=== PATIENT | female | born 1995 | race African-American/Black ===

== ENCOUNTER 2017-03-04 13:01 | Emergency (ER) | payer OTHER ==
[~2017-03-04] VITALS: Ht 180.3 cm; Wt 66.7 kg
[~2017-03-04 13:01] MED LIST: CIPR500T94 PO; PHEN-373 PO
[2017-03-04 13:09] VITALS: BP 139/63
[2017-03-04] MEDS ORDERED: NAPROXEN 500 MG TABLET PO STA (13:19)
[2017-03-04] MEDS ORDERED: HYDROcodone/APAP 5/325MG 1 TAB TABLET PO ONE (13:30)
[2017-03-04] MEDS ORDERED: ACET-704 PO (13:31)
[2017-03-04] MEDS ORDERED: TRAM-29 PO (13:31)
--- NOTE | 2017-03-04 13:31 | PHYS DOC ---
Past Medical History Past Medical History: CVA, Other Additional Past Medical Histor: patient had a stroke in 2006; left side partial weakness,FLUID ON SPINE Past Surgical History: No Surgical History Alcohol Use: None Drug Use: None Adult General Chief Complaint Chief Complaint: VAGINAL BLEEDING [facility] HPI Patient is a 21 year old female who presents with vaginal bleeding that began at the end of November 2016. Patient states she's been using 6 feminine pads per day. Patient denies any chance she is . She states she followed up with [facility] they did testing gave her some medicine which stopped the bleeding for 2 weeks then the bleeding resumed in December. Patient states she's been bleeding since then Patient's also complaining of lower abdominal cramping mild in nature. Patient states all she wants today is pain medicine for cramping OTC pain medicines are not helping. She states she will follow-up with her own PERSONAL COUNSELOR in 2 weeks as scheduled. Patient states she does not want any more workups because they could not find anything wrong in the previous work ups , so she does not want to go through the testing again. Patient denies any urgency frequency or dysuria. Review of Systems Review of Systems Constitutional: Denies fever or chills [] Eyes: Denies change in visual acuity, redness, or eye pain [] HENT: Denies nasal congestion or sore throat [] Respiratory: Denies cough or shortness of breath [] Cardiovascular: No additional information not addressed in HPI [] GI: Vaginal bleeding : See history of present illness Musculoskeletal: Denies back pain or joint pain [] Integument: Denies rash or skin lesions [] Neurologic: Denies headache, focal weakness or sensory changes [] Endocrine: Denies polyuria or polydipsia [] Current Medications Current Medications Current Medications Medications (Trade) Dose Ordered Sig/Rodo Start Time Stop Time Status Last Admin Dose Admin Acetaminophen/ Hydrocodone Bitart (Lortab 5/325) 1 tab 1X ONCE 03/04/17 13:30 03/04/17 13:31 DC Naproxen (Naprosyn) 500 mg 1X STAT 03/04/17 13:19 03/04/17 13:22 DC Allergies Allergies Allergies Coded Allergies Type Severity Reaction Last Updated Verified No Known Drug Allergies 10/03/13 No Physical Exam Physical Exam Constitutional: Well developed, well nourished, no acute distress, non-toxic appearance. [] HENT: Normocephalic, atraumatic, bilateral external ears normal, oropharynx moist, no oral exudates, nose normal. [] Eyes: PERRLA, EOMI, conjunctiva normal, no discharge. [] Neck: Normal range of motion, no tenderness, supple, no stridor. [] Cardiovascular:Heart rate regular rhythm, no murmur [] Lungs & Thorax: Bilateral breath sounds clear to auscultation [] Abdomen: Bowel sounds normal, soft, no tenderness, no masses, no pulsatile masses. [] Skin: Warm, dry, no erythema, no rash. [] Back: No tenderness, no CVA tenderness. [] Extremities: No tenderness, no cyanosis, no clubbing, ROM intact, no edema. [] Neurologic: Alert and oriented X 3, normal motor function, normal sensory function, no focal deficits noted. [] Psychologic: Affect normal, judgement normal, mood normal. [] Current Patient Data Vital Signs Vital Signs Date Time Temp Pulse Resp B/P (MAP) Pulse Ox O2 Delivery O2 Flow Rate FiO2 03/04/17 13:09 98.4 96 16 139/63 (88) 99 Room Air 98.4 EKG EKG [] Radiology/Procedures Radiology/Procedures [] Course & Med Decision Making Course & Med Decision Making Pertinent Labs and Imaging studies reviewed. (See chart for details) Patient is in the ED with dysfunctional uterine bleeding that has been going on since November 2016. She states she's been seen at [facility] on the on the workup which was negative. She states she has an appointment with her own OB/ TECHNICAL ASSOCIATE in 2 weeks. She is requesting pain relief in the ED today. She is very tearful. She has refused any workup. I offered her Ultram and Tylenol No. 3. Recommended she follows up with an PERSONAL COUNSELOR as soon as possible. Provided return precautions and discharged in stable condition. Dragon Disclaimer Dragon Disclaimer This electronic medical record was generated, in whole or in part, using a voice recognition dictation system. Departure Departure Impression: Primary Impression: Dysfunctional uterine bleeding Additional Impression: Dysmenorrhea Disposition: HOME, SELF-CARE Condition: STABLE Referrals: UNKNOWN PCP NAME (PCP) EVERTON PRUITT MD Follow-up with your own PERSONAL COUNSELOR or the provided PERSONAL COUNSELOR as soon as possible Patient Instructions: Dysmenorrhea, Uterine Bleeding, Dysfunctional, Easy-to- Read Additional Instructions: You were seen for dysfunctional uterine bleeding. We highly recommend you follow -up with an PERSONAL COUNSELOR as soon as you can. If you start soaking more than 1 feminine pad an hour you need to return to the emergency room. Scripts Acetaminophen With Codeine (TYLENOL WITH CODEINE #3 TABLET) 1 Each Tablet 1 TAB PO PRN Q6HRS Y for PAIN, #30 TAB Prov: MOOSE MATTSON APRN 03/04/17 Tramadol Hcl (ULTRAM) 50 Mg Tablet 1 TAB PO Q6HRS, #30 TAB Prov: MOOSE MATTSON APRN 03/04/17 Problem Qualifiers MOOSE MATTSON APRN March 04, 2017 13:31
== END 2017-03-04 13:44 | disposition home or self-care (01) ==
LOC: ER 13:39
DX: N94.6 Dysmenorrhea, unspecified (principal); N93.8 Other specified abnormal uterine and vaginal bleeding; Z86.73 Personal history of transient ischemic attack (TIA), and cerebral infarction without residual deficits
CPT/HCPCS: 99283

== ENCOUNTER 2017-11-07 10:43 | Emergency (ER) | payer SELFPAY, OTHER ==
[2017-11-07] MEDS: DEXAMETHASONE SOD PHOS 4 MG/ML VIAL PO (11:46)
[2017-11-07] MEDS: cefTRIAXone IM 1 GM VIAL IM (11:47)
[2017-11-07 14:45] LABS: NEGATIVE OBC STREP NEG; POSITIVE OBC STREP POS
== END 2017-11-07 12:32 | disposition home or self-care (01) ==
LOC: ER 10:43
DX: J03.90 Acute tonsillitis, unspecified (principal); Z86.73 Personal history of transient ischemic attack (TIA), and cerebral infarction without residual deficits
CPT/HCPCS: 87070; 87880; 96372; 99284-25; J0696; J1100

== ENCOUNTER 2018-07-12 22:25 | Emergency (ER) | payer SELFPAY ==
[~2018-07-12] VITALS: Ht 167.6 cm; Wt 81.6 kg
[~2018-07-12 22:25] MED LIST changes: +ACET-704 PO; +AMOX875T PO; -PHEN-373 PO; +PHEN-444 PO; +TRAM-48 PO
[2018-07-13 00:32] VITALS: BP 127/78
[2018-07-13 01:05] LABS: BILIRUBIN,URINE NEGATIVE (NEG); CLARITY,URINE CLEAR; COLOR,URINE YELLOW; NITRITE,URINE NEGATIVE (NEG); PROTEIN,URINE NEGATIVE (NEG-TRACE)
[2018-07-13 01:11] LABS: AMORPHOUS SEDIMENT,UR PRESENT /HPF; BACTERIA,URINE FEW /HPF (0-FEW); SQUAMOUS EPITHELIAL CELL,UR MANY /LPF
--- NOTE | 2018-07-13 01:29 | PHYS DOC ---
Past Medical History Past Medical History: No Pertinent History, CVA, Other Additional Past Medical Histor: patient had a stroke in 2006; left side partial weakness,FLUID ON SPINE Past Surgical History: No Surgical History Alcohol Use: None Drug Use: None Adult General Chief Complaint Chief Complaint: VAGINAL BLEEDING [facility] HPI Patient is a 22 year old female who presents with vaginal spotting for the past week. She states she is 13 weeks . She states it has been getting progressively worse. She notes the spotting is worse with urination. She also endorses slight abdominal cramps that are intermittent. She rates this pain as a 4/10 and describes it as a crampy pain. The pain does not radiate anywhere. She has not tried anything to make her symptoms better. She has not seen an OBGYN for this . She has been once before and had a full-term with no complications. This is her second . She denies any headaches, dizziness, diarrhea, constipation, or urinary changes. States she did have some nausea and vomiting last week. Review of Systems Review of Systems Constitutional: Denies fever or chills Eyes: Denies change in visual acuity, redness, or eye pain HENT: Denies nasal congestion or sore throat Respiratory: Denies cough or shortness of breath Cardiovascular: No additional information not addressed in HPI GI: Notes abdominal cramps, nausea, vomiting, Denies diarrhea or constipation : Notes vaginal spotting; Denies dysuria Musculoskeletal: Denies back pain or joint pain Integument: Denies rash or skin lesions Neurologic: Denies headache, focal weakness or sensory changes Complete systems were reviewed and found to be within normal limits, except as documented in this note. Family History Family History Denies Current Medications Current Medications Current Medications Medications (Trade) Dose Ordered Sig/Rodo Start Time Stop Time Status Last Admin Dose Admin Azithromycin (Zithromax) 1,000 mg 1X ONCE 07/13/18 03:45 07/13/18 03:46 DC 07/13/18 03:58 1,000 MG Ceftriaxone Sodium (Rocephin Im) 250 mg 1X ONCE 07/13/18 03:45 07/13/18 03:46 DC 07/13/18 03:59 250 MG Metronidazole (Flagyl) 500 mg 1X ONCE 07/13/18 04:45 07/13/18 04:46 None Allergies Allergies Allergies Coded Allergies Type Severity Reaction Last Updated Verified No Known Drug Allergies 10/03/13 No NKDA Physical Exam Physical Exam Constitutional: Well developed, well nourished, no acute distress, non-toxic appearance HENT: Normocephalic, atraumatic, oropharynx moist, no oral exudates, nose normal Eyes: Conjunctiva normal, no discharge Neck: Normal range of motion, no tenderness, supple, no meningismus Cardiovascular: Heart rate regular rhythm, no murmur Lungs & Thorax: Bilateral breath sounds clear to auscultation Abdomen: Soft, no tenderness Skin: Warm, dry, no erythema, no rash Back: No tenderness, no CVA tenderness Extremities: No tenderness, ROM intact, no edema Neurologic: Alert and oriented X 3, normal motor function, normal sensory function, no focal deficits noted Psychologic: Affect normal, judgement normal, mood normal Current Patient Data Vital Signs Vital Signs Date Time Temp Pulse Resp B/P (MAP) Pulse Ox O2 Delivery O2 Flow Rate FiO2 07/13/18 00:32 98.7 87 18 127/78 (94) 100 Room Air 98.7 Lab Values Laboratory Tests Test 07/13/18 00:32 07/13/18 00:55 07/13/18 01:25 Urine Collection Type Unknown Urine Color Yellow Urine Clarity Clear Urine pH 6.0 Urine Specific [place] >=1.030 Urine Protein Negative mg/dL (NEG-TRACE) Urine Glucose (UA) Negative mg/dL (NEG) Urine Ketones (Stick) Trace mg/dL (NEG) Urine Blood Large (NEG) Urine Nitrite Negative (NEG) Urine Bilirubin Negative (NEG) Urine Urobilinogen Dipstick 1.0 mg/dL (0.2 mg/dL) Urine Leukocyte Esterase Moderate (NEG) Urine RBC 1-2 /HPF (0-2) Urine WBC 11-20 /HPF (0-4) Urine Squamous Epithelial Cells Many /LPF Urine Amorphous Sediment Present /HPF Urine Bacteria Few /HPF (0-FEW) Urine Mucus Marked /LPF POC Urine HCG, Qualitative Hcg positive (Negative) White Blood Count 7.6 x10^3/uL (4.0-11.0) Red Blood Count 3.80 x10^6/uL (3.50-5.40) Hemoglobin 9.7 g/dL (12.0-15.5) L Hematocrit 29.0 % (36.0-47.0) L Mean Corpuscular Volume 76 fL (79-100) L Mean Corpuscular Hemoglobin 26 pg (25-35) Mean Corpuscular Hemoglobin Concent 34 g/dL (31-37) Red Cell Distribution Width 17.9 % (11.5-14.5) H Platelet Count 245 x10^3/uL (140-400) Neutrophils (%) (Auto) 78 % (31-73) H Lymphocytes (%) (Auto) 13 % (24-48) L Monocytes (%) (Auto) 7 % (0-9) Eosinophils (%) (Auto) 2 % (0-3) Basophils (%) (Auto) 0 % (0-3) Neutrophils # (Auto) 5.9 x10^3uL (1.8-7.7) Lymphocytes # (Auto) 1.0 x10^3/uL (1.0-4.8) Monocytes # (Auto) 0.5 x10^3/uL (0.0-1.1) Eosinophils # (Auto) 0.1 x10^3/uL (0.0-0.7) Basophils # (Auto) 0.0 x10^3/uL (0.0-0.2) Maternal Serum HCG Beta Subunit 93462 mIU/mL (0-5) H Sodium Level 138 mmol/L (136-145) Potassium Level 3.6 mmol/L (3.5-5.1) Chloride Level 102 mmol/L (98-107) Carbon Dioxide Level 27 mmol/L (21-32) Anion Gap 9 (6-14) Blood Urea Nitrogen 12 mg/dL (7-20) Creatinine 0.6 mg/dL (0.6-1.0) Estimated GFR (Cockcroft-Gault) 152.7 BUN/Creatinine Ratio 20 (6-20) Glucose Level 98 mg/dL (70-99) Calcium Level 8.7 mg/dL (8.5-10.1) Magnesium Level 1.9 mg/dL (1.8-2.4) Total Bilirubin 0.2 mg/dL (0.2-1.0) Aspartate Amino Transferase (AST) 11 U/L (15-37) L Alanine Aminotransferase (ALT) 12 U/L (14-59) L Alkaline Phosphatase 55 U/L (46-116) Total Protein 7.0 g/dL (6.4-8.2) Albumin 3.1 g/dL (3.4-5.0) L Albumin/Globulin Ratio 0.8 (1.0-1.7) L Laboratory Tests 07/13/18 01:25 Laboratory Tests 07/13/18 01:25 Microbiology 07/13/18 Wet Prep - Final, Complete EKG EKG [] Radiology/Procedures Radiology/Procedures Pelvic US: Single living intrauterine with heart rate of 158 bpm. Gestational age is 14 weeks and 5 days. Course & Med Decision Making Course & Med Decision Making Patient is a 22 year old female who presents with vaginal spotting for the past week. Pertinent labs and imaging studies were obtained and reviewed ( see chart for details). Pelvic ultrasound showed presence of heart tones and measurements were obtained. A single living intrauterine with heart rate of 158 bpm was noted. Gestational age is 14 weeks and 5 days. Patient underwent pelvic exam. Pelvic exam showed some blood and some thick white discharge. Wet mount prep was obtained and showed the presence of clue cells. High suspicion for bacterial vaginosis. Prescription for metronidazole 500mg bid for 7 days is provided. Prior to this, she was also given a one-time dose of Rocephin and azithromycin to cover potential gonorrhea and chlamydia infections. Patient was informed about possibility of future threatened miscarriage vs. normal . Patient acknowledged understanding. Patient stable for discharge with outpatient follow-up with OBGYN. Discussed findings and plan with patient, who acknowledge understanding and agreement. Dragon Disclaimer Dragon Disclaimer This electronic medical record was generated, in whole or in part, using a voice recognition dictation system. Departure Departure Impression: Primary Impression: Threatened miscarriage Additional Impression: Bacterial vaginosis Disposition: HOME, SELF-CARE Condition: STABLE Referrals: NO PCP (PCP) Patient Instructions: Bacterial Vaginosis, [id number], Threatened Miscarriage , [id number] Scripts Metronidazole (FLAGYL) 500 Mg Tablet 500 MG PO BID for 7 Days, #14 TAB Prov: MIGEL FIGUEROA DO 07/13/18 Problem Qualifiers MIGEL FIGUEROA DO Jul 13, 2018 01:29
[2018-07-13 01:35] LABS: BASO % 0 % (0-3); EOS # 0.1 x10^3/uL (0.0-0.7); EOS % 2 % (0-3); HEMOGLOBIN 9.7 g/dL (12.0-15.5); LYMPH % 13 % (24-48); MEAN CORPUSCULAR HEMOGLOBIN 26 pg (25-35); MEAN CORPUSCULAR HGB CONC 34 g/dL (31-37); MEAN CORPUSCULAR VOLUME 76 fL (79-100); MONO # 0.5 x10^3/uL (0.0-1.1); MONO % 7 % (0-9); NEUT # 5.9 x10^3uL (1.8-7.7); NEUT % 78 % (31-73); PLATELET COUNT 245 x10^3/uL (140-400); RED CELL DISTRIBUTION WIDTH 17.9 % (11.5-14.5); WHITE BLOOD COUNT 7.6 x10^3/uL (4.0-11.0)
[2018-07-13 02:08] LABS: ALBUMIN 3.1 g/dL (3.4-5.0); ALBUMIN/GLOBULIN RATIO 0.8 (1.0-1.7); CALCIUM 8.7 mg/dL (8.5-10.1); CREATININE 0.6 mg/dL (0.6-1.0); GFR 152.7; MAGNESIUM 1.9 mg/dL (1.8-2.4); POTASSIUM 3.6 mmol/L (3.5-5.1); TOTAL BILIRUBIN 0.2 mg/dL (0.2-1.0)
--- NOTE | 2018-07-13 03:07 | RAD ---
Examination: Obstetric ultrasound less than 14 weeks HISTORY: History of spotting for one week COMPARISON: None available FINDINGS: Single living intrauterine identified with heart rate of 158 bpm movement, cardiac activity seen 3 vessel cord is seen Fluid in the bladder, stomach, kidneys, spine, brain are visualized. Probable fluid identified in the third and fourth ventricles. Questionable mild echogenic appearing bowel. position is variable Cervical length is 3.6 cm Base of the localization is posterior wall Placental grade is grade 1 Amniotic fluid is normal [place]-rump length measures 8.3 cm corresponding to 14 weeks and 2 days Biparietal diameter measures 2.7 cm corresponding to 15 weeks and 0 days Head circumference measures 10.6 cm corresponding to 15 weeks and 0 days Abdominal circumference measures 8.5 cm corresponding to 14 weeks and 6 days Femur length measures 1.5 cm corresponding to 14 weeks and 3 days Gestational age corresponds to 14 weeks and 5 days with estimated date of delivery by this ultrasound 01/06/2019. There is a 4.8 cm fibroid identified in the anterior aspect of the uterus. Cephalic index is 82.9 Head circumference to abdominal circumference ratio 1.2 Femur length to biparietal diameter ratio 54.5 Femur length to head circumference 14.3 Femur length to abdominal circumference 17.7. IMPRESSION: 1. Single living intrauterine with heart rate of 158 bpm. Gestational age is 14 weeks and 5 days. 2. Questionable echogenic appearing bowel. Close interval follow-up examination is recommended. 3. Fluid is identified in the third and fourth ventricles. Electronically signed by: Cory Bosch MD (07/13/2018 3:03 AM) [id number]
[2018-07-13] MEDS ORDERED: cefTRIAXone IM 250 MG VIAL IM ONE (03:45)
[2018-07-13] MEDS ORDERED: AZITHROMYCIN 250 MG TABLET. PO ONE (03:45)
[2018-07-13] MEDS ORDERED: METR500T PO (04:09)
[2018-07-13] MEDS ORDERED: metroNIDAZOLE 500 MG TABLET PO ONE (04:45)
== END 2018-07-13 04:30 | disposition home or self-care (01) ==
LOC: ER 22:25
DX: O20.0 Threatened abortion (principal); O21.9 Vomiting of pregnancy, unspecified; O23.591 Infection of other part of genital tract in pregnancy, first trimester; B96.89 Other specified bacterial agents as the cause of diseases classified elsewhere; Z3A.13 13 weeks gestation of pregnancy
CPT/HCPCS: 36415; 76805; 76817; 80053; 81001; 81025; 83735; 84702; 85025; 86900; 86901; 87086; 96372; 99285; J0696; Q0111; Q0144

== ENCOUNTER → 2018-08-22 | Outpatient (CLI) | payer MEDICAID, OTHER ==
[~2018-08-22] MED LIST changes: +METR500T PO
--- NOTE | 2018-08-22 16:59 | KCIC ---
Indication: Evaluate for size and dates TECHNIQUE: Ultrasound OB limited COMPARISON: Previous exam from 07/13/2018 FINDINGS: The biparietal diameter measures 4.74 cm corresponding to gestation age of 20 weeks 2 days. The head circumference measures 17.22 cm corresponding to gestation age of 19 weeks 6 days. Abdominal circumference measures 15.53 cm corresponding to gestation age of 20 weeks 5 days. Cord insertion is visualized. The femoral length measures 3.42 cm corresponding to gestation age of 20 weeks 5 days. Female sex demonstrated. Cervix is closed and measures 4 cm in length. Placenta is posterior in positioning. Heart rate of 152 bpm. Amniotic fluid index measures 11 cm and is within normal limits. Presentation is vertex of the time of scanning. Four-chamber heart is not visualized. Estimated weight of 366 g plus or minus 54 g. movement was observed. IMPRESSION: 1. Single viable intrauterine with estimated gestation age of 20 weeks 3 days with due date of 01/06/2019. 2. Four-chamber heart was not visualized likely due to positioning. Attention on follow-up. Electronically signed by: Sarbjit Palacios DO (08/22/2018 4:56 PM) [facility]
== END | disposition home or self-care (01) ==
LOC: KCIC US 14:43
PROVIDERS: ATTEND Obstetrics & Gynecology
DX: O26.842 Uterine size-date discrepancy, second trimester (principal); Z3A.20 20 weeks gestation of pregnancy
CPT/HCPCS: 76815

== ENCOUNTER 2019-01-03 07:54 | Inpatient (IN) | payer OTHER ==
[~2019-01-03] VITALS: Ht 180.3 cm; Wt 81.6 kg
[2019-01-03] MEDS ORDERED: BUTORPHANOL 2 MG/ML VIAL. IV PRN ×2 (08:30)
[2019-01-03] MEDS ORDERED: LIDOCAINE 1% PF 30 ML VIAL. INJ PRN (08:30)
[2019-01-03] MEDS ORDERED: 0.9 % SODIUM CHLORIDE 10 ML DISP.SYRIN. IV PRN ×2 (08:30→19:00)
[2019-01-03] MEDS ORDERED: fentaNYL PF VIAL 100 MCG/2 ML VIAL IV PRN (08:30)
[2019-01-03] MEDS ORDERED: OXYTOCIN 30 UNIT/500 ML PREMIX 500 ML IV PRN ×3 (08:30→19:00)
[2019-01-03] MEDS ORDERED: TERBUTALINE 1 MG/ML VIAL. SQ PRN (08:30)
[2019-01-03 08:35] VITALS: BP 120/80
[2019-01-03 09:40] LABS: BASO % 1 % (0-3); EOS # 0.1 x10^3/uL (0.0-0.7); EOS % 1 % (0-3); HEMATOCRIT 26.7 % (36.0-47.0); HEMOGLOBIN 8.2 g/dL (12.0-15.5); LYMPH % 15 % (24-48); MEAN CORPUSCULAR HEMOGLOBIN 21 pg (25-35); MEAN CORPUSCULAR HGB CONC 31 g/dL (31-37); MEAN CORPUSCULAR VOLUME 67 fL (79-100); MONO # 0.4 x10^3/uL (0.0-1.1); MONO % 6 % (0-9); NEUT # 5.3 x10^3uL (1.8-7.7); NEUT % 78 % (31-73); PLATELET COUNT 222 x10^3/uL (140-400); RED BLOOD COUNT 3.97 x10^6/uL (3.50-5.40); RED CELL DISTRIBUTION WIDTH 18.6 % (11.5-14.5); WHITE BLOOD COUNT 6.8 x10^3/uL (4.0-11.0)
[2019-01-03 10:03] LABS: BILIRUBIN,URINE NEGATIVE (NEG); CLARITY,URINE CLEAR; COLOR,URINE YELLOW; NITRITE,URINE NEGATIVE (NEG); PROTEIN,URINE NEGATIVE (NEG-TRACE); UROBILINOGEN,URINE 0.2 mg/dL (0.2 mg/dL)
[2019-01-03 10:12] LABS: SQUAMOUS EPITHELIAL CELL,UR MOD /LPF
[2019-01-03 10:13] LABS: BACTERIA,URINE MODERATE /HPF (0-FEW); RBC,URINE OCC /HPF (0-2)
[2019-01-03] MEDS ORDERED: ROPIVacaine 0.2% PF 10 ML VIAL. ONE ×2 (10:54→11:00)
[2019-01-03] MEDS ORDERED: L&D EPIDURAL SYRINGE 50 ML ONE (10:55)
[2019-01-03] MEDS ORDERED: L&D EPIDURAL 50 ML SYRINGE. ONE (11:00)
[2019-01-03 11:09] LABS: PLT ESTIMATE ADEQUATE (ADEQUATE)
[2019-01-03 11:10] LABS: ANISOCYTOSIS SLIGHT; MICROCYTOSIS MOD; OVALOCYTES FEW; POLYCHROMASIA SLIGHT
[2019-01-03 11:11] LABS: HYPOCHROMIA PRESENT
[2019-01-03] MEDS ORDERED: IV RINGERS,LACTATED 1000ML 1,000 ML IV SCH (13:04)
[2019-01-03] MEDS ORDERED: fentaNYL PF VIAL 100 MCG/2 ML VIAL EPI PRN (13:15)
[2019-01-03] MEDS ORDERED: NALOXONE 0.4 MG/ML VIAL. IV PRN (13:15)
[2019-01-03] MEDS ORDERED: ROPIVacaine 0.2% IN 0.9%NACL PF 40 MG/20 ML DISP.SYRIN. EPID PRN (13:15)
[2019-01-03] MEDS ORDERED: BUPIVACAINE MPF 0.25% 30 ML VIAL. EPID PRN (13:15)
[2019-01-03] MEDS: IV RINGERS,LACTATED 1000ML 1,000 ML IV SCH ×2 (13:51→16:28)
[2019-01-03] MEDS: L&D EPIDURAL SYRINGE 50 ML EPID PRN ×2 (14:43→17:39)
--- NOTE | 2019-01-03 17:00 | PDOC1 ---
OB - History Hx of Present Care: Good Care Ultrasounds: Normal mid trimester US Obstetrical Complications: None Medical Complications: None Past Family/Social History * Past Medical, Surgical, Family and Obstetric Histories reviewed from chart. Rubella: Immune RPR/VDRL: Negative GBS Status: Negative HBsAG: Negative OB - Chief Complaint & HPI Date of Admission: Date of Admission: Jan 03, 2019 at 07:54 Chief Complaint/History : 2 Para: 1 EGA: 39 Reason for admission: active labor Admission Nurse Assessment Rev: Yes OB - Admission Exam Physical Exam Vitals: VS - Last 72 Hours, by Label Date Time Temp Pulse Resp B/P (MAP) Pulse Ox O2 Delivery O2 Flow Rate FiO2 01/03/19 14:43 18 01/03/19 08:35 99.1 73 18 120/80 (93) Room Air 99.1 HEENT: Normal Heart: Regular Rate Lungs: Clear Abdomen: Gravid, Non tender, Soft Extremities: Edema Reflexes: Normal Cervical Dilatation: 3cm Effacement: 100% Station: -3 Membranes: Intact Heart Rate: Normal Accelerations: Accelerations Present Decelerations: No decelerations Intensity: Firm Text A: 39 wks IUP Active labor P: Admit for labor management. LETICIA ARTIS Jr, MD Jan 03, 2019 17:00
--- NOTE | 2019-01-03 18:47 | PDOC ---
VAGINAL DELIVERY DATE DATE: 01/03/19 TIME: 18:46 : 2 Para: 2 EGA: 39 VAGINAL DELIVERY: VTX VACCUM ASSISTED: No PLACENTA: Spontaneous 8/9 SEX: Female WEIGHT Weight [ 7 lbs. 7 oz] Nuchal Cord: No Amniotic Fluid: Clear PAIN: Epidural EPISIOTOMY: No EXTENSION: No EBL 300 ml COMPLICATIONS none CONDITION pt. stable Signs of Intrauterine Infectio: None Shoulder Dystocia: No LETICIA ARTIS Jr, MD Jan 03, 2019 18:47
[2019-01-03] MEDS ORDERED: ZOLPIDEM 5 MG TABLET. PO PRN (19:00)
[2019-01-03] MEDS ORDERED: BENZOCAINE 20% TOPICAL AEROSOL SPRAY 57GM CAN. TP PRN (19:00)
[2019-01-03] MEDS ORDERED: diphenhydrAMINE HCL 25 MG CAPSULE PO PRN (19:00)
[2019-01-03] MEDS ORDERED: MMR per PROTOCOL. MC PRN (19:00)
[2019-01-03] MEDS ORDERED: IBUPROFEN 400 MG TABLET. PO PRN (19:00)
[2019-01-03] MEDS ORDERED: MAG HYDROX/ALUMINUM HYD/SIMETH 30 ML ORAL.SUSP PO PRN (19:00)
[2019-01-03] MEDS ORDERED: SIMETHICONE 80 MG TAB.CHEW PO PRN (19:00)
[2019-01-03] MEDS ORDERED: MAGNESIUM HYDROXIDE 2,400 MG/30 ML ORAL.SUSP. PO PRN (19:00)
[2019-01-03] MEDS ORDERED: ACETAMINOPHEN 325 MG TABLET. PO PRN (19:00)
[2019-01-03] MEDS ORDERED: PHENYLEPH/MINERAL OIL/PETROLAT RECTAL OINTMENT 28GM TUBE. RC PRN (19:00)
[2019-01-03] MEDS ORDERED: HYDROCORTISONE 1% TOPICAL OINTMENT 30GM TUBE. TP PRN (19:00)
[2019-01-03 21:15] VITALS: BP 119/66
[2019-01-03] MEDS: IBUPROFEN 400 MG TABLET. PO PRN (21:31)
[2019-01-03] MEDS: oxyCODONE/APAP 5/325 1 TAB TABLET PO PRN (21:32)
[2019-01-04] MEDS: IV RINGERS,LACTATED 1000ML 1,000 ML IV SCH (00:28)
[2019-01-04 01:20] VITALS: BP 95/39
[2019-01-04] MEDS: IBUPROFEN 400 MG TABLET. PO PRN ×3 (03:46→20:14)
[2019-01-04] MEDS: oxyCODONE/APAP 5/325 1 TAB TABLET PO PRN (03:46)
[2019-01-04 03:51] VITALS: BP 94/50
[2019-01-04] MEDS ORDERED: FERROUS SULFATE 325 MG TABLET. PO SCH (08:00)
[2019-01-04] MEDS: DOCUSATE SODIUM 100 MG CAPSULE. PO PRN (08:01)
[2019-01-04 08:07] LABS: BASO % 1 % (0-3); EOS # 0.1 x10^3/uL (0.0-0.7); EOS % 1 % (0-3); HEMATOCRIT 24.8 % (36.0-47.0); HEMOGLOBIN 7.7 g/dL (12.0-15.5); LYMPH # 1.2 x10^3/uL (1.0-4.8); LYMPH % 13 % (24-48); MEAN CORPUSCULAR HEMOGLOBIN 21 pg (25-35); MEAN CORPUSCULAR HGB CONC 31 g/dL (31-37); MEAN CORPUSCULAR VOLUME 67 fL (79-100); MONO # 0.6 x10^3/uL (0.0-1.1); MONO % 6 % (0-9); NEUT # 7.8 x10^3uL (1.8-7.7); NEUT % 80 % (31-73); PLATELET COUNT 200 x10^3/uL (140-400); RED CELL DISTRIBUTION WIDTH 18.4 % (11.5-14.5); WHITE BLOOD COUNT 9.7 x10^3/uL (4.0-11.0)
[2019-01-04 10:30] VITALS: BP 101/62
--- NOTE | 2019-01-04 11:05 | PDOC ---
OB Progress Note Date of Service 01/04/19 Time of Evaluation 1100 Notes Pt. feeling well. No complaints. Lab Laboratory Tests Test 01/03/19 09:20 01/03/19 09:50 01/04/19 07:50 White Blood Count 6.8 x10^3/uL (4.0-11.0) 9.7 x10^3/uL (4.0-11.0) Red Blood Count 3.97 x10^6/uL (3.50-5.40) 3.70 x10^6/uL (3.50-5.40) Hemoglobin 8.2 g/dL (12.0-15.5) 7.7 g/dL (12.0-15.5) Hematocrit 26.7 % (36.0-47.0) 24.8 % (36.0-47.0) Mean Corpuscular Volume 67 fL (79-100) 67 fL (79-100) Mean Corpuscular Hemoglobin 21 pg (25-35) 21 pg (25-35) Mean Corpuscular Hemoglobin Concent 31 g/dL (31-37) 31 g/dL (31-37) Red Cell Distribution Width 18.6 % (11.5-14.5) 18.4 % (11.5-14.5) Platelet Count 222 x10^3/uL (140-400) 200 x10^3/uL (140-400) Neutrophils (%) (Auto) 78 % (31-73) 80 % (31-73) Lymphocytes (%) (Auto) 15 % (24-48) 13 % (24-48) Monocytes (%) (Auto) 6 % (0-9) 6 % (0-9) Eosinophils (%) (Auto) 1 % (0-3) 1 % (0-3) Basophils (%) (Auto) 1 % (0-3) 1 % (0-3) Neutrophils # (Auto) 5.3 x10^3uL (1.8-7.7) 7.8 x10^3uL (1.8-7.7) Lymphocytes # (Auto) 1.0 x10^3/uL (1.0-4.8) 1.2 x10^3/uL (1.0-4.8) Monocytes # (Auto) 0.4 x10^3/uL (0.0-1.1) 0.6 x10^3/uL (0.0-1.1) Eosinophils # (Auto) 0.1 x10^3/uL (0.0-0.7) 0.1 x10^3/uL (0.0-0.7) Basophils # (Auto) 0.0 x10^3/uL (0.0-0.2) 0.0 x10^3/uL (0.0-0.2) Platelet Estimate Adequate (ADEQUATE) Large Platelets Few Polychromasia Slight Hypochromasia Present Anisocytosis Slight Microcytosis Mod Ovalocytes Few Treponema pallidum Antibody Nonreactive (Nonreactive) Urine Collection Type Unknown Urine Color Yellow Urine Clarity Clear Urine pH 7.0 Urine Specific [place] <=1.005 Urine Protein Negative mg/dL (NEG-TRACE) Urine Glucose (UA) Negative mg/dL (NEG) Urine Ketones (Stick) Negative mg/dL (NEG) Urine Blood Negative (NEG) Urine Nitrite Negative (NEG) Urine Bilirubin Negative (NEG) Urine Urobilinogen Dipstick 0.2 mg/dL (0.2 mg/dL) Urine Leukocyte Esterase Moderate (NEG) Urine RBC Occ /HPF (0-2) Urine WBC 5-10 /HPF (0-4) Urine Squamous Epithelial Cells Mod /LPF Urine Bacteria Moderate /HPF (0-FEW) Laboratory Tests Test 01/04/19 07:50 White Blood Count 9.7 x10^3/uL (4.0-11.0) Red Blood Count 3.70 x10^6/uL (3.50-5.40) Hemoglobin 7.7 g/dL (12.0-15.5) Hematocrit 24.8 % (36.0-47.0) Mean Corpuscular Volume 67 fL (79-100) Mean Corpuscular Hemoglobin 21 pg (25-35) Mean Corpuscular Hemoglobin Concent 31 g/dL (31-37) Red Cell Distribution Width 18.4 % (11.5-14.5) Platelet Count 200 x10^3/uL (140-400) Neutrophils (%) (Auto) 80 % (31-73) Lymphocytes (%) (Auto) 13 % (24-48) Monocytes (%) (Auto) 6 % (0-9) Eosinophils (%) (Auto) 1 % (0-3) Basophils (%) (Auto) 1 % (0-3) Neutrophils # (Auto) 7.8 x10^3uL (1.8-7.7) Lymphocytes # (Auto) 1.2 x10^3/uL (1.0-4.8) Monocytes # (Auto) 0.6 x10^3/uL (0.0-1.1) Eosinophils # (Auto) 0.1 x10^3/uL (0.0-0.7) Basophils # (Auto) 0.0 x10^3/uL (0.0-0.2) Medications Current Medications Sodium Chloride (Normal Saline Flush) 3 ml QSHIFT PRN IV AFTER MEDS AND BLOOD DRAWS; Start 01/03/19 at 08:30 Ringer's Solution 1,000 ml @ 125 mls/hr Q8H IV Last administered on 01/03/19at 13:51; Start 01/03/19 at 08:28 Butorphanol Tartrate (Stadol) 1 mg PRN Q1HR PRN IV mild to moderate labor pain ; Start 01/03/19 at 08:30 Butorphanol Tartrate (Stadol) 2 mg PRN Q1HR PRN IV Severe labor pain; Start at 08:30 Fentanyl Citrate (Fentanyl 2ml Vial) 100 mcg PRN Q30MIN PRN IV Severe pain; Start 01/03/19 at 08:30 Terbutaline Sulfate (Brethine) 0.25 mg 1X PRN PRN SQ SEE COMMENTS; Start at 08:30; Stop 01/04/19 at 08:29; Status DC Lidocaine HCl (Xylocaine 1% Pf 30ml Vial) 30 ml 1X PRN PRN INJ SEE COMMENTS; Start 01/03/19 at 08:30; Stop 01/05/19 at 08:29 Oxytocin/Sodium Chloride 500 ml @ 0 mls/hr CONT PRN IV SEE I/O RECORD Last administered on 01/03/19at 13:53; Start 01/03/19 at 08:30 Oxytocin/Sodium Chloride 500 ml @ 0 mls/hr CONT PRN PRN IV Post delivery bleeding; Start 01/03/19 at 08:30 Ibuprofen (Motrin) 800 mg PRN Q6HRS PRN PO MODERATE PAIN Last administered on 3 /14/19at 03:46; Start 01/03/19 at 08:30 Ropivacaine (Naropin 0.2%) 10 ml STK-MED ONCE .ROUTE ; Start 01/03/19 at 10:54; Stop 01/03/19 at 10:55; Status DC Ropivacaine/ Fentanyl/NS 50 ml @ As Directed STK-MED ONCE .ROUTE ; Start at 10:55; Stop 01/03/19 at 10:56; Status DC Ephedrine Sulfate (Akovaz) 50 mg STK-MED ONCE .ROUTE ; Start 01/03/19 at 11:19; Stop 01/03/19 at 11:21; Status DC Ringer's Solution 1,000 ml @ 1,000 mls/hr Q1H IV ; Start 01/03/19 at 13:04; Stop 01/03/19 at 14:03; Status DC Naloxone HCl (Narcan) 0.04 mg PRN Q1MIN PRN IV SEE COMMENTS; Start 01/03/19 at 13:15 Fentanyl Citrate (Fentanyl 2ml Vial) 100 mcg PRN 1X PRN EPI FOR ANESTHESIA; Start 01/03/19 at 13:15; Stop 01/04/19 at 13:14 Bupivacaine HCl (Sensorcaine Mpf 0.25%) 10 ml PRN 1X PRN EPID FOR ANESTHESIA; Start 01/03/19 at 13:15; Stop 01/04/19 at 13:14 Ropivacaine/ Fentanyl/NS 50 ml @ 14 mls/hr CONT PRN EPID PAIN Last administered on 01/03/19at 17:39; Start 01/03/19 at 13:15 Ropivacaine/ Sodium Chloride (ROPIVacaine 0.2% - 0.9%NACL PF) 40 mg 1X PRN PRN EPID PER ANESTHESIA; Start 01/03/19 at 13:15; Stop 01/04/19 at 13:04 Sodium Chloride (Normal Saline Flush) 10 ml QSHIFT PRN IV AFTER MEDS AND BLOOD DRAWS; Start 01/03/19 at 19:00 Oxytocin/Sodium Chloride 500 ml @ 62.5 mls/hr CONT PRN IV SEE I/O RECORD; Start 01/03/19 at 19:00; Stop 01/04/19 at 03:00; Status DC Acetaminophen (Tylenol) 650 mg PRN Q6HRS PRN PO MILD PAIN / TEMP; Start at 19:00 Ibuprofen (Motrin) 800 mg PRN Q8HRS PRN PO INFLAMMATION/PAIN PREVENTION; Start 01/03/19 at 19:00; Stop 01/03/19 at 19:00; Status DC Docusate Sodium (Colace) 100 mg PRN BID PRN PO CONSTIPATION 1ST CHOICE Last administered on 01/04/19at 08:01; Start 01/03/19 at 19:00 Magnesium Hydroxide (Milk Of Magnesia) 2,400 mg PRN DAILY PRN PO CONSTIPATION 2ND CHOICE; Start 01/03/19 at 19:00 Al Hydroxide/Mg Hydroxide (Mylanta Plus Xs) 30 ml PRN Q4HRS PRN PO HEARTBURN / GAS; Start 01/03/19 at 19:00 Simethicone (Gas-X) 80 mg PRN AFTMEALHC PRN PO GAS / BLOATING; Start 01/03/19 at 19:00 Diphenhydramine HCl (Benadryl) 25 mg PRN Q6HRS PRN PO ITCHING; Start 01/03/19 at 19:00 Benzocaine (Americaine) 1 spray PRN QID PRN TP TOPICAL PAIN; Start 01/03/19 at 19:00 Phenyleph/Shark Oil/Min Oil/Petrol (Preparation H) 1 yasmine PRN QID PRN RC RECTAL PAIN; Start 01/03/19 at 19:00 Hydrocortisone (Cortaid) 1 yasmine PRN QID PRN TP PERINEAL PAIN; Start 01/03/19 at 19:00 Ferrous Sulfate (Feosol) 325 mg BIDWMEALS PO Last administered on 01/04/19at 08: 01; Start 01/04/19 at 08:00 Zolpidem Tartrate (Ambien) 5 mg PRN QHS PRN PO INSOMNIA, MAY REPEAT X1; Start 01/03/19 at 19:00 Info (Do NOT chart on this placeholder) 1 ea 1X PRN PRN MC SEE COMMENTS; Start 01/03/19 at 19:00 Info (Do NOT chart on this placeholder) 1 ea 1X PRN PRN MC SEE COMMENTS; Start 01/03/19 at 19:00 Oxycodone/ Acetaminophen (Percocet 5/325) 2 tab PRN Q4HRS PRN PO MODERATE PAIN , SEVERE PAIN Last administered on 01/04/19at 03:46; Start 01/03/19 at 19:00 Ropivacaine/ Fentanyl/NS (Exxqpqic-Hurhi-VK 3 Mcg-0.1%) 50 ml STK-MED ONCE .ROUTE ; Start 01/03/19 at 11:00; Stop 01/04/19 at 08:53; Status DC Ropivacaine (Naropin 0.2%) 10 ml STK-MED ONCE .ROUTE ; Start 01/03/19 at 11:00; Stop 01/04/19 at 08:53; Status DC Active Scripts Active Flagyl (Metronidazole) 500 Mg Tablet 500 Mg PO BID 7 Days Amoxicillin 875 Mg Tablet 1 Tab PO BID Tylenol With Codeine #3 Tablet (Acetaminophen/Codeine Phosphate) 1 Each Tablet 1 Tab PO PRN Q6HRS PRN Ultram (Tramadol Hcl) 50 Mg Tablet 1 Tab PO Q6HRS Phenazopyridine Hcl 200 Mg Tablet 200 Mg PO TID PRN Cipro (Ciprofloxacin Hcl) 500 Mg Tablet 500 Mg PO BID 7 Days Exam Abd: soft, non tender, fundus firm Assessment PPD#1 s/p Plan of Care: Continue current Tx, LETICIA Herrera Jr, MD Jan 04, 2019 11:05
[2019-01-04 17:26] VITALS: BP 94/52
[2019-01-04 23:16] VITALS: BP 106/55
[2019-01-05 06:11] VITALS: BP 99/61
--- NOTE | 2019-01-05 08:28 | PDOC3 ---
OB DISCHARGE SUMMARY DATE OF ADMISSION: 01/03/19 DATE OF DISCHARGE: 01/05/19 REASON FOR ADMISSION: Onset of labor INTRAPARTUM PROCEDURES: Spontanous Vag Deliv DISCHARGE DIAGNOSIS: Term Delivered DISCHARGE INFORMATION: Activity (ad conner), Diet (regular), Instructions (pelvic rest x 6 wks) HOSPITAL COURSE Term gestation delivered vaginally without complications. LETICIA ARTIS Jr, MD Jan 05, 2019 08:28
--- NOTE | 2019-01-05 08:28 | DISCH ---
DISCHARGE INSTRUCTIONS Condition on Discharge Condition on Discharge: Stable Activity After Discharge Activity Instructions for Disc: Activity as tolerated Lifting Instructions after Dis: No heavy lifting Driving Instructions after Dis: Do not drive today Diet after Discharge Diet Texture: Regular Contacting the DRYan after DC Call your doctor for: Concerns you may have Follow-Up Follow up with: Dr. Arciniega in 6 wks LETICIA ARCINIEGA Jr, MD Jan 05, 2019 08:28
[2019-01-05] MEDS ORDERED: IBUP-1027 PO (08:30)
[2019-01-05] MEDS ORDERED: DIPHTH,PERTUSS(ACELL),TET TOX 0.5 ML DISP.SYRIN. VAX IM ONE (09:00)
[2019-01-05] MEDS: DOCUSATE SODIUM 100 MG CAPSULE. PO PRN (09:08)
[2019-01-05] MEDS: IBUPROFEN 400 MG TABLET. PO PRN (09:09)
[2019-01-05 12:30] VITALS: BP 108/63
== END 2019-01-05 13:54 | disposition home or self-care (01) | DRG 806 ==
LOC: OBSVTOIN 07:54 → 3 SO LND 07:54
PROVIDERS: ADMIT Obstetrics & Gynecology; ATTEND Obstetrics & Gynecology
PROC: 10E0XZZ Delivery of Products of Conception, External Approach (ICD-10-PCS; principal; 2019-01-03)
PROC: 3E0R3BZ Introduction of Anesthetic Agent into Spinal Canal, Percutaneous Approach (ICD-10-PCS; 2019-01-03)
PROC: 00HU33Z Insertion of Infusion Device into Spinal Canal, Percutaneous Approach (ICD-10-PCS; 2019-01-03)
DX: O80 Encounter for full-term uncomplicated delivery (principal); R71.0 Precipitous drop in hematocrit; Z37.0 Single live birth; Z3A.39 39 weeks gestation of pregnancy
CPT/HCPCS: 36415; 81001; 85025; 86592; 86850; 86900; 86901; 87086; 90471; 90715; 90756; J2590; J2795; J7120; Q2035

== ENCOUNTER → 2020-11-27 | Outpatient (CLI) | payer OTHER ==
[~2020-11-27] MED LIST changes: +IBUP-1027 PO
--- NOTE | 2020-11-27 16:30 | RAD ---
EXAM: Ultrasound OB Greater than 14 weeks INDICATION: Reason: UT SIZE/DATE DISCPREANCY / Spl. Instructions: / History: TECHNIQUE: Real-time obstetrical ultrasound was performed with permanent freeze-frame documentation. COMPARISON: None. FINDINGS: POSITION: Cephalic HEART RATE: 128 bpm ANAT: 8.2 cm PLACENTA: Anterior grade 1. Not low-lying CERVICAL LENGTH: 4.2 cm MATERNAL UTERUS: Unremarkable. MATERNAL ADNEXA: Unremarkable. AGE/DATES: Gestational Age by LMP: 33 weeks 3 days Gestation Age by US: 35 weeks 2 days EDC by LMP: January 12, 2021 EDC by US: December 30, 2020 WEIGHT: 2514 grams +/- 372 grams PERCENTILE WEIGHT: 62% BIOMETRIC PARAMETERS: BPD: 8.7 cm corresponding with 35 weeks 1 day HC: 32.2 cm corresponding with 36 weeks 2 days AC: 30.0 cm corresponding with 34 weeks 1 day FL: 6.9 cm corresponding with 35 weeks 2 days IMPRESSION: Normal OB ultrasound demonstrating a single viable fetus in cephalic position. Estimated gestational age of 35 weeks 2 days and EDC of December 30, 2020. Electronically signed by: Babita Ayala MD (11/27/2020 4:28 PM) [id number]
== END ==
LOC: US 14:42
PROVIDERS: ATTEND Obstetrics & Gynecology
DX: O26.843 Uterine size-date discrepancy, third trimester (principal); Z3A.35 35 weeks gestation of pregnancy
CPT/HCPCS: 76805

== ENCOUNTER → 2020-12-29 | Outpatient (CLI) | payer OTHER | LOC: LAB 15:32 | PROVIDERS: ATTEND Obstetrics & Gynecology | DX: Z01.812 Encounter for preprocedural laboratory examination (principal); Z20.822 Contact with and (suspected) exposure to COVID-19 | CPT/HCPCS: U0003 ==

== ENCOUNTER 2020-12-30 19:14 | Observation (INO) | payer OTHER ==
[2020-12-30 19:51] LABS: BILIRUBIN,URINE NEGATIVE (NEG); CLARITY,URINE CLOUDY; COLOR,URINE YELLOW; NITRITE,URINE NEGATIVE (NEG); PROTEIN,URINE 30 mg/dL (NEG-TRACE)
[2020-12-30 19:57] LABS: BACTERIA,URINE MODERATE /HPF (0-FEW); TRICHOMONAS,URINE PRESENT; WBC,URINE TNTC /HPF (0-4)
[2020-12-30] MEDS ORDERED: metroNIDAZOLE 500 MG TABLET PO ONE (20:15)
== END 2020-12-30 20:55 | disposition home or self-care (01) ==
LOC: 3 SO LND 19:14
PROVIDERS: ADMIT Obstetrics & Gynecology; ATTEND Obstetrics & Gynecology
DX: O62.9 Abnormality of forces of labor, unspecified (principal); Z3A.38 38 weeks gestation of pregnancy; Z79.899 Other long term (current) drug therapy
CPT/HCPCS: 59025; 81001; 87086; G0378; G0379

== ENCOUNTER 2020-12-31 18:43 | Inpatient (IN) | payer OTHER ==
[~2020-12-31] VITALS: Ht 180.3 cm; Wt 76.7 kg
[2020-12-31 19:00] VITALS: BP 122/71
[2020-12-31] MEDS ORDERED: ACETAMINOPHEN 325 MG TABLET. PO PRN (19:00)
[2020-12-31] MEDS ORDERED: fentaNYL PF VIAL 100 MCG/2 ML VIAL IVP PRN (19:00)
[2020-12-31] MEDS ORDERED: TERBUTALINE 1 MG/ML VIAL. SQ PRN (19:00)
[2020-12-31] MEDS ORDERED: OXYTOCIN 30 UNIT/500 ML PREMIX 500 ML IV PRN (19:00)
[2020-12-31] MEDS ORDERED: IV RINGERS,LACTATED 1000ML 1,000 ML IV PRN (19:00)
[2020-12-31] MEDS ORDERED: ONDANSETRON PF 4 MG/2 ML VIAL. IVP PRN (19:00)
[2020-12-31] MEDS ORDERED: 0.9 % SODIUM CHLORIDE 10 ML DISP.SYRIN. IV PRN (19:00)
[2020-12-31] MEDS ORDERED: LIDOCAINE 1% PF 30 ML VIAL. INJ PRN (19:00)
[2020-12-31] MEDS ORDERED: metroNIDAZOLE 500 MG TABLET PO ONE (19:30)
[2020-12-31] MEDS ORDERED: DINOPROSTONE 10 MG SUPP.VAG VG ONE (19:30)
[2020-12-31] MEDS ORDERED: PENICILLIN G K 5,000,000 UNIT in IV DEXTROSE 5% 100ML 100 ML IV ONE (19:30)
[2020-12-31 19:54] LABS: BASO % 0 % (0-3); EOS # 0.1 x10^3/uL (0.0-0.7); EOS % 1 % (0-3); HEMATOCRIT 26.2 % (36.0-47.0); HEMOGLOBIN 8.6 g/dL (12.0-15.5); LYMPH # 0.9 x10^3/uL (1.0-4.8); LYMPH % 16 % (24-48); MEAN CORPUSCULAR HEMOGLOBIN 23 pg (25-35); MEAN CORPUSCULAR HGB CONC 33 g/dL (31-37); MEAN CORPUSCULAR VOLUME 71 fL (79-100); MONO # 0.4 x10^3/uL (0.0-1.1); MONO % 7 % (0-9); NEUT % 75 % (31-73); PLATELET COUNT 258 x10^3/uL (140-400); RED BLOOD COUNT 3.72 x10^6/uL (3.50-5.40); RED CELL DISTRIBUTION WIDTH 17.9 % (11.5-14.5); WHITE BLOOD COUNT 5.3 x10^3/uL (4.0-11.0)
[2020-12-31 20:12] LABS: PLT ESTIMATE ADEQUATE (ADEQUATE)
[2020-12-31 20:13] LABS: ANISOCYTOSIS SLIGHT; HYPOCHROMIA SLIGHT; MICROCYTOSIS MOD; OVALOCYTES FEW; POIKILOCYTOSIS SLIGHT
[2020-12-31] MEDS ORDERED: diphenhydrAMINE HCL 25 MG CAPSULE PO PRN (21:00)
[2020-12-31] MEDS ORDERED: OXYTOCIN PREMIX 30 UNIT/500 ML NS BAG. IV ONE (23:30)
[2021-01-01] MEDS ORDERED: TDaP (Adacel) per PROTOCOL. MC PRN (00:30)
[2021-01-01] MEDS ORDERED: SIMETHICONE 80 MG TAB.CHEW PO PRN (00:30)
[2021-01-01] MEDS ORDERED: MAG HYDROX/ALUMINUM HYD/SIMETH 30 ML ORAL.SUSP PO PRN (00:30)
[2021-01-01] MEDS ORDERED: PHENYLEPH/MINERAL OIL/PETROLAT RECTAL OINTMENT TUBE. RC PRN (00:30)
[2021-01-01] MEDS ORDERED: MMR per PROTOCOL. MC PRN (00:30)
[2021-01-01] MEDS ORDERED: ZOLPIDEM 5 MG TABLET. PO PRN (00:30)
[2021-01-01] MEDS ORDERED: MAGNESIUM HYDROXIDE 2,400 MG/30 ML ORAL.SUSP. PO PRN (00:30)
--- NOTE | 2021-01-01 00:33 | PDOC ---
GENERAL General: 25yrs old lady admitted for Induction. Patient had Cervidil and then went in Rapid Labor and Delivered in Bed. Alive Male baby 6lbs 15oz at 2328hours . VITAL SIGNS Vital Signs/I&O: Vital Signs Date Time Temp Pulse Resp B/P (MAP) Pulse Ox O2 Delivery O2 Flow Rate FiO2 12/31/20 22:05 Room Air 12/31/20 19:00 99.4 71 20 122/71 (88) 99.4 ALLERGIES Allergies: Allergies Coded Allergies Type Severity Reaction Last Updated Verified No Known Drug Allergies 10/03/13 No MEDS Medications: Current Medications Medications (Trade) Dose Ordered Sig/Rodo Route PRN Reason Start Time Stop Time Status Last Admin Dose Admin Ringer's Solution 1,000 ml @ 125 mls/hr Q8H PRN IV hydration 12/31/20 19:00 12/31/20 21:10 Fentanyl Citrate (Fentanyl 2ml Vial) 100 mcg PRN Q30MIN PRN IVP Severe pain 12/31/20 19:00 12/31/20 22:05 Dinoprostone (Cervidil) 10 mg 1X ONCE VG 12/31/20 19:30 12/31/20 19:31 DC 12/31/20 19:48 Metronidazole (Flagyl) 2,000 mg 1X ONCE PO 12/31/20 19:30 12/31/20 19:31 DC 12/31/20 19:24 Diphenhydramine HCl (Benadryl) 50 mg PRN QHS PRN PO INSOMNIA 12/31/20 21:00 12/31/20 21:03 LAB Lab: Laboratory Tests Test 12/31/20 19:45 White Blood Count 5.3 x10^3/uL (4.0-11.0) Red Blood Count 3.72 x10^6/uL (3.50-5.40) Hemoglobin 8.6 g/dL (12.0-15.5) L Hematocrit 26.2 % (36.0-47.0) L Mean Corpuscular Volume 71 fL (79-100) L Mean Corpuscular Hemoglobin 23 pg (25-35) L Mean Corpuscular Hemoglobin Concent 33 g/dL (31-37) Red Cell Distribution Width 17.9 % (11.5-14.5) H Platelet Count 258 x10^3/uL (140-400) Neutrophils (%) (Auto) 75 % (31-73) H Lymphocytes (%) (Auto) 16 % (24-48) L Monocytes (%) (Auto) 7 % (0-9) Eosinophils (%) (Auto) 1 % (0-3) Basophils (%) (Auto) 0 % (0-3) Neutrophils # (Auto) 4.0 x10^3/uL (1.8-7.7) Lymphocytes # (Auto) 0.9 x10^3/uL (1.0-4.8) L Monocytes # (Auto) 0.4 x10^3/uL (0.0-1.1) Eosinophils # (Auto) 0.1 x10^3/uL (0.0-0.7) Basophils # (Auto) 0.0 x10^3/uL (0.0-0.2) Platelet Estimate Adequate (ADEQUATE) Hypochromasia Slight Poikilocytosis Slight Anisocytosis Slight Microcytosis Mod Ovalocytes Few Treponema pallidum Antibody Nonreactive (Nonreactive) Laboratory Tests 12/31/20 19:45 ASSESSMENT & PLAN A&P Patient Has no vaginal Tears. Baby has good Apgars scores. Uterus firm. Spontaneous delivery of Placenta. EBL 300cc. Justifications for Admission Other Justification EVERTON PRUITT MD Jan 01, 2021 00:33
[2021-01-01] MEDS: IBUPROFEN 400 MG TABLET. PO PRN ×4 (00:34→23:12)
--- NOTE | 2021-01-01 03:21 | OP ---
DATE OF SURGERY: DELIVERY NOTE This patient is a 25-year-old -Russian female who is 3, para 2, EDC 01/07/2021, admitted to the hospital for induction of labor and she was given Cervidil and after the Cervidil, she did go in spontaneous labor, had a rapid delivery in the bed and delivered an alive male weighing 6 pounds 15 ounces at 2328 hours with good scores and she did have a spontaneous vaginal delivery. No hemorrhage and visualization of the perineum reveals no vaginal or vulvar tears that required any sutures. Placenta intact and estimated blood loss about 300 mL. Mother has tolerated the delivery well. No complications at this time. She has received Pitocin after delivery of the placenta. Baby is referred to building supervisor for further care and treatment. EVERTON PRUITT MD DR: MALINDA/william JOB#: [id number] / [id number]
[2021-01-01 05:00] VITALS: BP 93/51
[2021-01-01] MEDS ORDERED: OXYTOCIN 30 UNIT/500 ML PREMIX 500 ML IV PRN (06:00)
[2021-01-01] MEDS ORDERED: PENICILLIN G K 5,000,000 UNIT in IV DEXTROSE 5% 100ML 100 ML IV ONE (06:00)
[2021-01-01] MEDS ORDERED: oxyCODONE/APAP 5/325 1 TAB TABLET PO PRN ×2 (08:15)
[2021-01-01] MEDS: DOCUSATE SODIUM 100 MG CAPSULE. PO PRN (08:20)
[2021-01-01 08:30] VITALS: BP 102/60
[2021-01-01] MEDS: PRENATAL MULTIVITAMIN TABLET. PO SCH (09:05)
[2021-01-01] MEDS: FERROUS SULFATE 325 MG TABLET. PO SCH ×2 (09:05→18:55)
[2021-01-01] MEDS ORDERED: PENICILLIN G K 2,500,000 UNIT in IV DEXTROSE 5% 50 ML IV SCH (10:00)
--- NOTE | 2021-01-01 10:25 | PDOC1 ---
OB - History Hx of Present Care: Good Care Ultrasounds: Normal mid trimester US Obstetrical Complications: None Medical Complications: None Past Family/Social History * Past Medical, Surgical, Family and Obstetric Histories reviewed from chart. Rubella: Immune RPR/VDRL: Negative GBS Status: Negative HBsAG: Negative OB - Chief Complaint & HPI Date of Admission: Date of Admission: Dec 31, 2020 at 18:43 Chief Complaint/History : 3 Para: 2 EGA: 39 Reason for admission: induction of labor Indication for induction: maternal discomfort Admission Nurse Assessment Rev: Yes OB - Admission Exam Physical Exam Vitals: VS - Last 72 Hours, by Label Date Time Temp Pulse Resp B/P (MAP) Pulse Ox O2 Delivery O2 Flow Rate FiO2 01/01/21 08:30 97.4 63 16 102/60 (74) 99 Room Air 97.4 01/01/21 05:00 97.7 74 16 93/51 (65) Room Air 97.7 01/01/21 01:44 Room Air 12/31/20 22:05 Room Air 12/31/20 19:00 99.4 71 20 122/71 (88) Room Air 99.4 HEENT: Normal Heart: Regular Rate Lungs: Clear Abdomen: Gravid, Non tender, Soft Extremities: Edema Reflexes: Normal Cervical Dilatation: 2cm Effacement: 75% Station: -3 Membranes: Intact Heart Rate: Normal Accelerations: Accelerations Present Decelerations: No decelerations Contractions on Admission: >10 Minutes Apart Text A: 39 wks IUP IOL secondary maternal discomforts P: Admit IOL cervidil, then pitocin in am. LETICIA ARTIS Jr, MD Jan 01, 2021 10:25
[2021-01-01 13:10] VITALS: BP 100/52
[2021-01-01 16:50] VITALS: BP 97/55
--- NOTE | 2021-01-01 16:59 | NUR ---
SW following for discharge planning. Called the unit. No SW needs.
[2021-01-01] MEDS ORDERED: FERROUS SULFATE 325 MG TABLET. PO SCH (17:00)
[2021-01-01 20:00] VITALS: BP 128/78
[2021-01-01 23:15] VITALS: BP 98/64
[2021-01-02 05:00] VITALS: BP 116/68
[2021-01-02] MEDS: FERROUS SULFATE 325 MG TABLET. PO SCH ×2 (07:54→17:31)
[2021-01-02] MEDS: IBUPROFEN 400 MG TABLET. PO PRN ×3 (07:54→23:19)
[2021-01-02] MEDS: DOCUSATE SODIUM 100 MG CAPSULE. PO PRN (07:54)
[2021-01-02] MEDS: PRENATAL MULTIVITAMIN TABLET. PO SCH (07:54)
[2021-01-02 08:00] VITALS: BP 96/50
[2021-01-02] MEDS ORDERED: FERROUS SULFATE 325 MG TABLET. PO SCH (08:00)
--- NOTE | 2021-01-02 10:33 | PDOC3 ---
OB DISCHARGE SUMMARY DATE OF ADMISSION: 12/31/20 DATE OF DISCHARGE: 01/02/21 REASON FOR ADMISSION: Onset of labor INTRAPARTUM PROCEDURES: Spontanous Vag Deliv DISCHARGE DIAGNOSIS: Term Delivered DISCHARGE INFORMATION: Activity (ad conner), Diet (regular), Instructions (pelvic rest x 6wks) HOSPITAL COURSE Term gestation delivered vaginally without complications. LETICIA ARTIS Jr, MD Jan 02, 2021 10:33
--- NOTE | 2021-01-02 10:35 | DISCH ---
DISCHARGE INSTRUCTIONS Condition on Discharge Condition on Discharge: Stable Activity After Discharge Activity Instructions for Disc: Activity as tolerated Lifting Instructions after Dis: No heavy lifting Driving Instructions after Dis: Do not drive today Diet after Discharge Diet after Discharge: Regular Diet Texture: Regular Contacting the DRYan after DC Call your doctor for: Concerns you may have Follow-Up Follow up with: Dr. Arciniega in 6 wks LETICIA ARCINIEGA Jr, MD Jan 02, 2021 10:34
[2021-01-02 17:00] VITALS: BP 98/53
[2021-01-02 19:30] VITALS: BP 110/68
[2021-01-02 23:15] VITALS: BP 109/64
== END 2021-01-02 23:41 | disposition home or self-care (01) | DRG 807 ==
LOC: 3 SO LND 18:43
PROVIDERS: ADMIT Obstetrics & Gynecology; ATTEND Obstetrics & Gynecology
PROC: 10E0XZZ Delivery of Products of Conception, External Approach (ICD-10-PCS; principal; 2021-01-01)
PROC: 3E0P7VZ Introduction of Hormone into Female Reproductive, Via Natural or Artificial Opening (ICD-10-PCS; 2021-01-01)
DX: O80 Encounter for full-term uncomplicated delivery (principal); Z37.0 Single live birth; Z3A.39 39 weeks gestation of pregnancy
CPT/HCPCS: 36415; 85014; 85025; 86592; 86850; 86900; 86901; G0378; J2590; J3010; J7120; Q0163

== ENCOUNTER 2022-02-05 14:44 | Emergency (ER) | payer OTHER ==
[~2022-02-05] VITALS: Ht 180.3 cm; Wt 64.5 kg
[2022-02-05 16:06] LABS: BASO % 1 % (0-3); EOS # 0.1 x10^3/uL (0.0-0.7); EOS % 1 % (0-3); HEMATOCRIT 33.2 % (36.0-47.0); HEMOGLOBIN 10.7 g/dL (12.0-15.5); LYMPH # 0.7 x10^3/uL (1.0-4.8); LYMPH % 13 % (24-48); MEAN CORPUSCULAR HEMOGLOBIN 25 pg (25-35); MEAN CORPUSCULAR HGB CONC 32 g/dL (31-37); MEAN CORPUSCULAR VOLUME 78 fL (79-100); MONO # 0.4 x10^3/uL (0.0-1.1); MONO % 7 % (0-9); NEUT # 4.4 x10^3/uL (1.8-7.7); NEUT % 78 % (31-73); PLATELET COUNT 271 x10^3/uL (140-400); RED BLOOD COUNT 4.28 x10^6/uL (3.50-5.40); RED CELL DISTRIBUTION WIDTH 15.6 % (11.5-14.5); WHITE BLOOD COUNT 5.6 x10^3/uL (4.0-11.0)
[2022-02-05 16:19] LABS: CALCIUM 8.8 mg/dL (8.5-10.1); CREATININE 0.7 mg/dL (0.6-1.0); GFR 123.4; POTASSIUM 3.5 mmol/L (3.5-5.1)
[2022-02-05 16:28] LABS: BACTERIA,URINE 0 /HPF (0-FEW); RBC,URINE TNTC /HPF (0-2)
--- NOTE | 2022-02-05 17:15 | PHYS DOC ---
Past Medical History Past Medical History: CVA, Other Additional Past Medical Histor: CVA in 2007,left side partial weakness,FLUID ON SPINE,"low iron" Past Surgical History: No Surgical History Smoking Status: Never Smoker Alcohol Use: Occasionally Drug Use: None General Adult EDM: Chief Complaint: VAGINAL BLEEDING HPI: HPI: Patient is a 26 year old female who presents with vaginal bleeding. Patient reports she began bleeding heavily vaginally last night around 2029. She states she has filled about 2 pads per hour last night. The blood is bright red with clots that she describes as "gooey." Her last menstrual period lasted from /01/2022. Patient states her periods are usually regular and consistent. To her knowledge, she states there is no chance she is . She reports associated intermittent cramping that feels similar to menstrual cramping. Patient denies weakness, lightheadedness, dysuria, vaginal discharge, vaginal pain. Review of Systems: Review of Systems: Constitutional: Denies fever, chills or generalized weakness Eyes: Denies change in visual acuity, visual field deficits or discharge HENT: Denies ear pain, nasal congestion or sore throat Respiratory: Denies cough or shortness of breath Cardiovascular: Denies chest pain, palpitations or edema GI: See HPI : See HPI Musculoskeletal: Denies back pain or joint pain Integument: Denies rash or other skin lesion Neurologic: Denies headache, focal weakness or sensory changes Heart Score: C/O Chest Pain: No Allergies: Allergies: Allergies Coded Allergies Type Severity Reaction Last Updated Verified No Known Drug Allergies 10/03/13 No Physical Exam: PE: Constitutional: Well developed, well nourished, no acute distress, non-toxic appearance. HENT: Normocephalic, atraumatic, bilateral external ears normal, nose normal. Eyes: EOMI, no conjunctival pallor appreciated, no discharge. Neck: Normal range of motion, no stridor. Cardiovascular: Heart regular rate and rhythm. No apparent murmurs, rubs or gallops. Lungs & Thorax: Equal thoracic expansion, normal work of breathing. Abdomen: Soft, no tenderness, no masses, no pulsatile masses. Skin: Warm, dry, no erythema, no rash. Extremities: No cyanosis, no clubbing, ROM intact, no edema. Neurologic: Alert and oriented x4, normal motor function, normal sensory function, no focal deficits noted. Current Patient Data: Labs: Laboratory Tests Test 02/05/22 15:50 White Blood Count 5.6 x10^3/uL (4.0-11.0) Red Blood Count 4.28 x10^6/uL (3.50-5.40) Hemoglobin 10.7 g/dL (12.0-15.5) Hematocrit 33.2 % (36.0-47.0) Mean Corpuscular Volume 78 fL (79-100) Mean Corpuscular Hemoglobin 25 pg (25-35) Mean Corpuscular Hemoglobin Concent 32 g/dL (31-37) Red Cell Distribution Width 15.6 % (11.5-14.5) Platelet Count 271 x10^3/uL (140-400) Neutrophils (%) (Auto) 78 % (31-73) Lymphocytes (%) (Auto) 13 % (24-48) Monocytes (%) (Auto) 7 % (0-9) Eosinophils (%) (Auto) 1 % (0-3) Basophils (%) (Auto) 1 % (0-3) Neutrophils # (Auto) 4.4 x10^3/uL (1.8-7.7) Lymphocytes # (Auto) 0.7 x10^3/uL (1.0-4.8) Monocytes # (Auto) 0.4 x10^3/uL (0.0-1.1) Eosinophils # (Auto) 0.1 x10^3/uL (0.0-0.7) Basophils # (Auto) 0.0 x10^3/uL (0.0-0.2) Urine Collection Type Unknown Urine Color (Auto) Light yellow Urine Turbidity Clear Urine pH (Auto) 7.0 (<5.0-8.0) Urine Specific [place] 1.019 (1.000-1.030) Urine Protein (Auto) Negative mg/dL (Negative) Urine Glucose (Auto)(UA) Negative mg/dL (Negative) Urine Ketones (Auto) Negative mg/dL (Negative) Urine Blood (Auto) Large (Negative) Urine Nitrite Negative (Negative) Urine Bilirubin (Auto) Negative (Negative) Urine Urobilinogen (Auto) Normal mg/dL (Normal) Urine Leukocyte Esterase (Auto) Small (Negative) Urine RBC Tntc /HPF (0-2) Urine WBC 1-4 /HPF (0-4) Urine Squamous Epithelial Cells Few /LPF Urine Bacteria 0 /HPF (0-FEW) Urine Mucus Mod /LPF Sodium Level 141 mmol/L (136-145) Potassium Level 3.5 mmol/L (3.5-5.1) Chloride Level 105 mmol/L (98-107) Carbon Dioxide Level 29 mmol/L (21-32) Anion Gap 7 (6-14) Blood Urea Nitrogen 11 mg/dL (7-20) Creatinine 0.7 mg/dL (0.6-1.0) Estimated GFR (Cockcroft-Gault) 123.4 Glucose Level 81 mg/dL (70-99) Calcium Level 8.8 mg/dL (8.5-10.1) Serum Test, Qualitative Negative (NEG) Laboratory Tests 02/05/22 15:50 Laboratory Tests 02/05/22 15:50 Vital Signs: Vital Signs Date Time Temp Pulse Resp B/P (MAP) Pulse Ox O2 Delivery O2 Flow Rate FiO2 02/05/22 18:45 63 14 99/65 (76) 98 02/05/22 16:03 98.5 89 16 112/68 (83) 100 Room Air 98.5 Radiology/Procedures: Radiology/Procedures: PROCEDURE: PELVIS W/TV EXAM: ULTRASOUND PELVIS INDICATION: Reason: abnormal uterine bleeding, anemic was . COMPARISON: None available. TECHNIQUE: Transabdominal and transvaginal sonography was performed. FINDINGS: Transabdominally the uterus measured 7.2 x 3.5 x 5.1 cm. Endometrium measured 6.5 mm. There is no free fluid in the pelvis. Right ovary measured 1.8 x 3 x 2 cm. There is flow in the right ovary with color imaging and Doppler. Left ovary not identified. Transvaginal imaging was performed for further evaluation. There is retroflexion the uterus. There is a small anterior uterine leiomyoma. Endometrium measured 6.5 mm at the fundus. There is a small amount of free fluid in the left adnexa. Left ovary was not identified transvaginally. IMPRESSION: 1. Endometrium 6.5 mm in thickness. 2. Uterus normal in size. 3. Small uterine leiomyoma. 4. Normal right ovary. 5. Left ovary not identified. Electronically signed by: Adarsh Bower MD (02/05/2022 8:04 PM) [facility] Course & Med Decision Making: Course & Med Decision Making Pertinent Labs and Imaging studies reviewed. (See chart for details) Patient is a 26-year-old female who presents for heavy vaginal bleeding that began last night. Patient reports that she saw clots in the bright red blood. The clots she is describing are less than 1 cm in size and "gooey." Work-up today will include basic labs, urinalysis transvaginal ultrasound. Patient reports history of iron deficiency anemia. Patient's labs are reassuring. While she is anemic, her hemoglobin is higher than past visits according to her lab history. There is a small anterior f ibroid seen on ultrasound, which could be causing her abnormal uterine bleeding. Patient is prescribed 600 mg ibuprofen for the cramping she is experiencing and instructed to follow-up with gynecology. She does not currently have an FILTRATION OPERATOR, so resources were provided to her to establish care. Return precautions were provided. Patient understands and is agreeable to discharge plan. Dragon Disclaimer: Cecile Disclaimer: This electronic medical record was generated, in whole or in part, using a voice recognition dictation system. Departure Departure Impression: Primary Impression: Uterine fibroid Qualified Codes: D25.9 - Leiomyoma of uterus, unspecified Additional Impression: Abnormal vaginal bleeding Referrals: NO PCP (PCP) MIGEL BANERJEE MD Patient Instructions: Uterine Fibroid, [id number] Additional Instructions: EMERGENCY DEPARTMENT GENERAL DISCHARGE INSTRUCTIONS Thank you for coming to [facility] Emergency Department (ED) today and trusting us with you care. We trust that you had a positive experience in our Emergency Department. If you wish to speak to the department management, you may call the director at . YOUR FOLLOW UP INSTRUCTIONS ARE FOLLOWS: 1. Follow up with your primary care doctor. If you do not have a primary doctor, please ask for a resource list of physicians or clinics that may be able to assist you with follow up care. 2. The emergency provider has interpreted your imaging studies, if any were ordered. The radiology capital markets specialist also reviewed them. If there is a change in the findings, you will be notified in 48 hours when at all possible. 3. If a lab test or culture has been done, your results will be reviewed and you will be notified if you need a change in treatment. 4. Follow instructions verbalized to you and refer to the printouts if needed. ADDITIONAL INSTRUCTIONS AND INFORMATION: 1. Your care today has been supervised by a physician who is specially trained in emergency care. Many problems require more than one evaluation for a complete diagnosis and treatment. We recommend that you schedule your follow up appointment as recommended to ensure complete treatment of you illness or injury. If you are unable to obtain follow up care and continue to have a problem, or if your condition worsens, we recommend that you return to the ED. 2. We are not able to safely determine your condition over the phone nor are we able to give sound medical advice over the phone. For these safety reasons, if you call for medical advice we will ask you to come to the ED for further evaluation. 3. If you have any questions regarding these discharge instructions please call the ED at . SAFETY INFORMATION: In the interest of safety, wellness, and injury prevention; we encourage you to wear your seat belt, if you smoke; quite smoking, and we encourage family to use a protective helmet for bicycling and other sporting events that present an increased risk for head injury. IF YOUR SYMPTOMS WORSEN OR NEW SYMPTOMS DEVELOP, OR YOU HAVE CONCERNS ABOUT YOUR CONDITION; OR IF YOUR CONDITION WORSENS WHILE YOU ARE WAITING FOR YOUR FOLLOW UP APPOINTMENT; EITHER CONTACT YOUR PRIMARY CARE DOCTOR, THE PHYSICIAN WHOSE NAME AND NUMBER YOU WERE GIVEN, OR RETURN TO THE ED IMMEDIATELY. Scripts Ibuprofen (IBUPROFEN) 600 Mg Tablet 600 MG PO PRN Q6HRS PRN for INFLAMMATION, #30 TAB Prov: ZE PURI 02/05/22 ZE PURI Feb 05, 2022 17:15
[2022-02-05 19:14] LABS: PREG TEST PT QUAL NEGATIVE (NEG)
--- NOTE | 2022-02-05 20:06 | RAD ---
EXAM: ULTRASOUND PELVIS INDICATION: Reason: abnormal uterine bleeding, anemic was . COMPARISON: None available. TECHNIQUE: Transabdominal and transvaginal sonography was performed. FINDINGS: Transabdominally the uterus measured 7.2 x 3.5 x 5.1 cm. Endometrium measured 6.5 mm. There is no moni e fluid in the pelvis. Right ovary measured 1.8 x 3 x 2 cm. There is flow in the right ovary with col or imaging and Doppler. Left ovary not identified. Transvaginal imaging was performed for further evaluation. There is retroflexion the uterus. There is a small anterior uterine leiomyoma. Endometrium measured 6.5 mm at the fundus. There is a small amou nt of free fluid in the left adnexa. Left ovary was not identified transvaginally. IMPRESSION: 1. Endometrium 6.5 mm in thickness. 2. Uterus normal in size. 3. Small uterine leiomyoma. 4. Normal right ovary. 5. Left ovary not identified. Electronically signed by: Adarsh Bower MD (02/05/2022 8:04 PM) [facility]
[2022-02-05] MEDS ORDERED: IBUP-1007 PO (20:22)
[2022-02-05 20:55] VITALS: BP 105/69
== END 2022-02-05 21:06 | disposition home or self-care (01) ==
LOC: ER 14:44
DX: D25.9 Leiomyoma of uterus, unspecified (principal); N93.8 Other specified abnormal uterine and vaginal bleeding; Z86.73 Personal history of transient ischemic attack (TIA), and cerebral infarction without residual deficits
CPT/HCPCS: 36415; 76830; 76856; 80048; 81001; 84703; 85025; 87077; 87086; 99284